=== PATIENT | female | born 1995 ===

== ENCOUNTER 2024-01-22 09:57 | Outpatient (AMB) | payer OTHER, SELFPAY ==
--- NOTE | 2024-01-22 10:44 | A.OFFPC_ITS ---
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 Intake Note: pt is here to est care Allergies nut - unspecified [nut] Allergy (Unknown, Unverified 01/22/24 11:45) HIVES peanut [PEANUT] Allergy (Unknown, Unverified 01/22/24 11:45) HIVES soy [SOY] Allergy (Unknown, Unverified 01/22/24 11:45) HIVES nuts Allergy (Unknown, Uncoded 01/22/24 11:45) Anaphylaxis peanuts Allergy (Unknown, Uncoded 01/22/24 11:45) Anaphylaxis Medication List - Last Reconciled 01/22/24 by PETER Hutton prednisone 20 mg PO DAILY Tobacco use date assessed: 01/22/24 Dental Screening Dental Screen Date: 01/22/24 Did you have a dental visit in the last 12 months?: Yes Did you have a dental problem in the last 6 months where you did not have access to dental care?: No Was dental information given to patient?: Patient has dentist HPI HPI Comments History of Present Illness Details Patient is a 28-year-old female who I am meeting for the 1st time. Patient has been medical history significant for asthma. Patient states she was seen recently at a local urgent care due to increased wheezing and was given prednisone, patient states she still has 2 days left for course of treatment. Will give patient Symbicort inhaler. Will also give patient albuterol solution for nebulizer. Patient has establish care with OBGYN. Will send us notes. 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 1. Little interest or pleasure in doing things: several days 2. Feeling down, depressed, or hopeless: several days 3. Trouble falling or staying asleep, or sleeping too much: several days 4. Feeling tired or having little energy: several days 5. Poor appetite or overeating: several days 6. Feeling bad about yourself - or that you are a failure or have let yourself or your family down: not at all 7. Trouble concentrating on things, such as reading the newspaper or watching television: not at all 8. Moving or speaking so slowly that other people could have noticed. Or the opposite - being so fidgety or restless that you have been moving around a lot more than usual: not at all 9. Thoughts that you would be better off or of hurting yourself in some way: not at all Total score: 5 Depression Screening Interpretation: Negative Depression Screening Done: Yes 60428 - PHQ-9 Billing: Yes Source: Developed by Drs. Gonzalez Palacios, Lakeisha Lopez, Leonid Will and colleagues, with an educational karlee from [employer]. Thrive Questionnaire Date Thrive assessed: 01/22/24 I am a: Patient What is your living situation today?: I have a steady place to live Within the past 12 months, did the food you bought not last and you didn't have the money to get more?: Never true Within the past 12 months, did you worry whether your food would run out before you got money to buy more?: Never true Do you have trouble paying for medicines?: No Do you have trouble getting transportation to medical appointments?: No Do you have trouble paying your heating and electricity bill?: No Do you have trouble taking care of your child, family member or friend?: No Do you have trouble with day-to-day activities such as bathing, preparing meals, shopping, managing finances, etc.?: No Are you currently unemployed and looking for a job?: No Are you interested in more education?: No THRIVE Score: 0 AUDIT C Alcohol Use Questionnaire (AUDIT-C) 1. How often do you have a drink containing alcohol?: Never Total Score: 0 ИРИНА-7 AMB Questionnaire ИРИНА-7 Date ИРИНА - 7 assessed: 01/22/24 Feeling nervous, anxious, or on edge: 0 = Not at all Not being able to stop or control worryin = Not at all Worrying too much about different things: 1 = Several days Trouble relaxin = Not at all Being so restless that it is hard to sit still: 0 = Not at all Becoming easily annoyed or irritable: 0 = Not at all Feeling afraid as if something awful might happen: 0 = Not at all Total ИРИНА-7 score (0-4 normal; 5-9 mild; 10-14 moderate; 15-21 severe): 1 Source: Developed by Drs. Gonzalez Palacios, Lakeisha Lopez, Leonid Will and colleagues, with an educational karlee from [employer]. ИРИНА-7 Assessment Billing ИРИНА-7 Assessment Tool: ИРИНА-7 Assessment 38734 Review of Systems Const All systems reviewed & are unremarkable except as noted in HPI and below Physical exam (Primary Care) Vital Signs: Last Vital Signs Pulse 87 01/22/24 10:55 BP 110/78 01/22/24 10:55 Pulse Ox 98 01/22/24 10:55 Oxygen Delivery Method Room Air 01/22/24 10:55 Care Plan Goal for BP management: Vital signs reviewed stable. BMI result Body Mass Index 24.9 Tobacco/Smoking Status: Tobacco use Status Tobacco use date assessed 01/22/24 01/22/24 11:06 Patient Tobacco Use Status Never used Tobacco 01/22/24 11:06 e-Cigarette/Vaping Use Never Used 01/22/24 11:06 PHQ-9: PHQ-9 Score PHQ-9: Total score 5 01/22/24 11:57 Depression Screening Interpretation: Negative Thrive Assessment: Date of Thrive Assessment Date Thrive assessed 01/22/24 01/22/24 10:57 Const Other: Appearance: Alert.? Oriented X3.? No acute distress.? Head: Normocephalic, atraumatic, no step-offs or deformities Eyes: Pupils equal, round and reactive to light.? ENT: Pharynx normal.?TM intact and pearly delacruz. Neck: Normal inspection.? Neck supple.? CVS: Normal heart rate and rhythm.? Pulses normal.? Respiratory: No respiratory distress.? Breath sounds normal.? Abdomen: Soft and nontender.? Neuro: Oriented X 3.? No motor deficit.? No sensory deficit. CN 2-12 intact Assessment and Plan Assessment & Plan (1) Asthma: Comment: Will give patient Symbicort inhaler in addition to patient's albuterol inhaler. Patient needs refill for albuterol nebulizer solution. Patient will also get referral to Allergy and immunology. Code(s): J45.909 - Unspecified asthma, uncomplicated Qualifiers: Asthma severity: unspecified severity Asthma persistence: unspecified Asthma complication type: unspecified Qualified Code(s): J45.909 - Unspecified asthma, uncomplicated Plan: Take your medications as prescribed. If you were prescribed antibiotics today, it is important that you take your medication to their entirety, do not skip any doses, do not finish them early. Follow-up with your primary care provider this week. Return to the emergency department with new or worsening symptoms. Such as fevers, chills, chest pain, shortness of breath, nausea, vomiting, dizziness, headache, vision changes, lethargy In case of emergency call 911 Plan Will follow-up for PE in 3 months Orders: Orders Lipid Panel Today Z13.220 - Encounter for screening for lipoid disorders UA CC w/rflx Micro + Cult Today Z13.89 - Encounter for screening for other disorder Vitamin B6 Today Z13.21 - Encounter for screening for nutritional disorder Vitamin B12 Today Z13.21 - Encounter for screening for nutritional disorder Comprehensive Met. Panel Today Z91.89 - Other specified personal risk factors, not elsewhere classified Complete Blood Count Auto Diff Today Z13.0 - Encounter for screening for diseases of the blood and blood-forming organs and certain disorders involving the immune mechanism TSH reflex Free T4 Today Z13.29 - Encounter for screening for other suspected endocrine disorder Vitamin D 25-OH (D2 and D3) Today Z13.21 - Encounter for screening for nutritional disorder Referrals Allergy & Immunology Referral J45.909 - Unspecified asthma, uncomplicated Medications: New budesonide-formoterol 160-4.5 mcg/actuation (Symbicort) 2 puffs inhalation BID 10.2 grams 0RF albuterol sulfate 2.5 mg (3 mL) inhalation QID PRN 90 mL 0RF shortness of breath or wheezing Coding Level of Care Code Est Pt Level 3 (55605) Diagnoses Asthma, unspecified asthma severity, unspecified whether complicated, unspecified whether persistent J45.909 Asthma severity: unspecified severity Asthma persistence: unspecified Asthma complication type: unspecified Additional Codes ИРИНА-7 Assessment Billing - ИРИНА-7 Assessment Tool: ИРИНА-7 Assessment 18959 ([id number]) Time Spent (min) 28
[2024-01-22 10:55] VITALS: BP 110/78; PULSE 87; O2SAT 98; BMI 24.9
== END 2024-01-22 12:10 | disposition home or self-care (01) ==
PROVIDERS: Visit Provider Nurse Practitioner Primary Care
DX: J45.909 Unspecified asthma, uncomplicated (principal)
CPT/HCPCS: 99213

== ENCOUNTER 2024-03-20 13:49 | Outpatient (AMB) | payer OTHER, SELFPAY ==
[2024-03-20 13:50] VITALS: BP 112/70; PULSE 72; O2SAT 98; BMI 25.1
--- NOTE | 2024-03-20 13:50 | A.OFFPC_ITS ---
Vital Signs 03/20/24 13:50 Height 5 ft 7 in Weight 160 lb BMI 25.1 BP 112/70 Blood Pressure Location Rt brachial Position Sitting Pulse 72 Pulse Source Pulse Oximeter Pulse Oximetry (%) 98 Oxygen Delivery Method Room Air Intake Visit Reasons: Annual PE Intake Note: pt here for annual PE. PAP overdue Allergies nut - unspecified [nut] Allergy (Unknown, Verified 03/20/24 14:08) HIVES peanut [PEANUT] Allergy (Unknown, Verified 03/20/24 14:08) HIVES soy [SOY] Allergy (Unknown, Verified 03/20/24 14:08) HIVES nuts Allergy (Unknown, Uncoded 03/20/24 14:08) Anaphylaxis peanuts Allergy (Unknown, Uncoded 03/20/24 14:08) Anaphylaxis Medication List - Last Reconciled 03/20/24 by PETER Hutton albuterol sulfate 2.5 mg (3 mL) inhalation QID PRN budesonide-formoterol 160-4.5 mcg/actuation 2 puffs inhalation BID prednisone 20 mg PO DAILY Tobacco use date assessed: 03/20/24 Dental Screening Dental Screen Date: 03/20/24 Did you have a dental visit in the last 12 months?: Yes Did you have a dental problem in the last 6 months where you did not have access to dental care?: No Was dental information given to patient?: Patient has dentist HPI HPI Comments History of Present Illness Details Patient is a 28-year-old female in today for a physical exam. Patient is up-to-date with Tdap next booster due in 2026 Last Pap smear completed 10/2021. Patient would like new OBGYN will refer to [facility] [place]. Patient has a past medical history significant for: Anemia-will draw CBC today. Not currently taking iron supplement Asthma-controlled with Albuterol in Symbicort inhaler. Patient reports she has dull left inguinal pain on some mornings. Does not feel like a burning or stabbing pain. Has had this feeling intermittently for the past two years. Denies fever or chills. No bowel movement or urination issues. 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 1. Little interest or pleasure in doing things: not at all 2. Feeling down, depressed, or hopeless: not at all 3. Trouble falling or staying asleep, or sleeping too much: more than half the days 4. Feeling tired or having little energy: several days 5. Poor appetite or overeating: several days 6. Feeling bad about yourself - or that you are a failure or have let yourself or your family down: not at all 7. Trouble concentrating on things, such as reading the newspaper or watching television: not at all 8. Moving or speaking so slowly that other people could have noticed. Or the opposite - being so fidgety or restless that you have been moving around a lot more than usual: not at all 9. Thoughts that you would be better off or of hurting yourself in some way: not at all Total score: 4 Depression Screening Interpretation: Negative Depression Screening Done: Yes 93017 - PHQ-9 Billing: Yes Source: Developed by Drs. Gonzalez Palacios, Lakeisha Lopez, Leonid Will and colleagues, with an educational karlee from [employer]. Thrive Questionnaire Date Thrive assessed: 03/20/24 I am a: Patient What is your living situation today?: I have a steady place to live Within the past 12 months, did the food you bought not last and you didn't have the money to get more?: Never true Within the past 12 months, did you worry whether your food would run out before you got money to buy more?: Never true Do you have trouble paying for medicines?: No Do you have trouble getting transportation to medical appointments?: No Do you have trouble paying your heating and electricity bill?: No Do you have trouble taking care of your child, family member or friend?: No Do you have trouble with day-to-day activities such as bathing, preparing meals, shopping, managing finances, etc.?: No Are you currently unemployed and looking for a job?: No Are you interested in more education?: No Please select the resources that you would like help with: None Currently or been in a relationship where the following occur: no concerns reported THRIVE Score: 0 AUDIT C Alcohol Use Questionnaire (AUDIT-C) 1. How often do you have a drink containing alcohol?: Never Total Score: 0 ИРИНА-7 AMB Questionnaire ИРИНА-7 Date ИРИНА - 7 assessed: 03/20/24 Feeling nervous, anxious, or on edge: 0 = Not at all Not being able to stop or control worryin = Not at all Worrying too much about different things: 0 = Not at all Trouble relaxin = Not at all Being so restless that it is hard to sit still: 0 = Not at all Becoming easily annoyed or irritable: 0 = Not at all Feeling afraid as if something awful might happen: 0 = Not at all Total ИРИНА-7 score (0-4 normal; 5-9 mild; 10-14 moderate; 15-21 severe): 0 Source: Developed by Drs. Gonzalez Palacios, Lakeisha Lopez, Leonid Will and colleagues, with an educational karlee from [employer]. ИРИНА-7 Assessment Billing ИРИНА-7 Assessment Tool: ИРИНА-7 Assessment 51389 ACT Questionnaire In the past 4 weeks, how much of the time did your asthma keep you from getting as much done at work, school or at home?: A little of the time During the past 4 weeks, how often have you had shortness of breath?: Not at all During the past 4 weeks, how often did your asthma symptoms wake you up at night or earlier than usual in the morning?: Not at all During the past 4 weeks, how often have you had to use your rescue inhaler or nebulizer medication?: Once a week or less How would you rate your asthma control during the past 4 weeks?: Completely controlled ACT Interpretation: Negative Score: 23 Review of Systems Const All systems reviewed & are unremarkable except as noted in HPI and below Denies chills, Denies fever(s) and Denies headache(s) ENT Denies vertigo, Denies dizziness, Denies headache(s) and Denies sore throat Card Denies chest pain and Denies dyspnea Resp Denies cough, Denies dyspnea and Denies wheezing GI Denies hematochezia, Denies constipation, Denies diarrhea, Denies nausea and Denies vomiting Neuro Denies vertigo, Denies dizziness and Denies headache(s) Aller/Immun Denies wheezing Physical exam (Primary Care) Vital Signs: Last Vital Signs Pulse 72 03/20/24 13:50 BP 112/70 03/20/24 13:50 Pulse Ox 98 03/20/24 13:50 Oxygen Delivery Method Room Air 03/20/24 13:50 Care Plan Goal for BP management: BP is controlled. BMI result Body Mass Index 25.1 Tobacco/Smoking Status: Tobacco use Status Tobacco use date assessed 03/20/24 03/20/24 14:02 Patient Tobacco Use Status Never used Tobacco 03/20/24 13:51 e-Cigarette/Vaping Use Never Used 03/20/24 13:51 PHQ-9: PHQ-9 Score PHQ-9: Total score 4 03/20/24 14:02 Depression Screening Interpretation: Negative Thrive Assessment: Date of Thrive Assessment Date Thrive assessed 03/20/24 03/20/24 14:02 Currently or been in a relationship where the following occur: no concerns reported Const Other: Appearance: Alert.? Oriented X3.? No acute distress.? Head: Normocephalic, Eyes: Pupils equal, round and reactive to light.?Sclera white. ENT: Pharynx normal.?Septum midline. TM intact and pearly delacruz. Neck: Normal inspection.? Neck supple.?Full ROM. CVS: Normal heart rate and rhythm.? Pulses normal.?S1 and S2. Respiratory: No respiratory distress.? Breath sounds normal.? Abdomen: Soft and nontender.? Skin: Skin warm and dry.? Normal skin color.? Normal skin turgor.? Extremities: No lower extremity edema.? No calf ttp. 5/5 strength to bilateral upper and lower extremities Back: No midline tenderness, no C-spine tenderness, full range of motion, no CVA tenderness bilaterally Neuro: Oriented X 3.? No motor deficit.? No sensory deficit. CN 2-12 intact Assessment and Plan Assessment & Plan (1) Encounter for physical examination: Comment: Will draw fasting labs. Patient up-to-date with Tdap. Will refer patient to OBGYN for pap smear. Code(s): Z00.00 - Encounter for general adult medical examination without abnormal findings (2) Left inguinal pain: Comment: Will order pelvic ultrasound. Will also order labs. Code(s): R10.32 - Left lower quadrant pain (3) Iron deficiency anemia: Comment: History of -will order ferritin, CBC Code(s): D50.9 - Iron deficiency anemia, unspecified Qualifiers: Iron deficiency anemia type: unspecified iron deficiency Qualified Code(s): D50.9 - Iron deficiency anemia, unspecified (4) Asthma: Comment: Controlled with albuterol and Symbicort. Code(s): J45.909 - Unspecified asthma, uncomplicated Qualifiers: Asthma severity: unspecified severity Asthma persistence: unspecified Asthma complication type: unspecified Qualified Code(s): J45.909 - Unspecified asthma, uncomplicated Plan: draw labs Plan Will follo up with labs. Orders: Orders Ferritin Today Z13.0 - Encounter for screening for diseases of the blood and blood-forming organs and certain disorders involving the immune mechanism US pelvic limited Today R10.32 - Left lower quadrant pain Referrals FINANCIAL SOLUTIONS ADVISOR Referral Z12.4 - Encounter for screening for malignant neoplasm of cervix Coding Level of Care Code New Pt Prev Care 18-39yr([id number] Diagnoses Encounter for physical examination Z00.00 Left inguinal pain R10.32 Iron deficiency anemia, unspecified iron deficiency anemia type D50.9 Iron deficiency anemia type: unspecified iron deficiency Asthma, unspecified asthma severity, unspecified whether complicated, unspecified whether persistent J45.909 Asthma severity: unspecified severity Asthma persistence: unspecified Asthma complication type: unspecified Additional Codes ИРИНА-7 Assessment Billing - ИРИНА-7 Assessment Tool: ИРИНА-7 Assessment [id number] ([id number]) Time Spent (min) 26
== END 2024-03-20 15:53 | disposition home or self-care (01) ==
PROVIDERS: PCP Nurse Practitioner Primary Care; Visit Provider Nurse Practitioner Primary Care
DX: Z00.00 Encounter for general adult medical examination without abnormal findings (principal); R10.32 Left lower quadrant pain; D50.9 Iron deficiency anemia, unspecified; J45.909 Unspecified asthma, uncomplicated
CPT/HCPCS: 99395

== ENCOUNTER 2024-03-25 12:40 | Outpatient (REF) | payer OTHER, SELFPAY ==
--- NOTE | ~2024-03-25 | US_ITS ---
EXAMINATION: US PELVIS, LIMITED/FOLLOW UP CLINICAL INFORMATION: Left lower quadrant pain COMPARISON: None available. TECHNIQUE: Grayscale and Doppler evaluation of patient indicated site of pain in the left lower quadrant FINDINGS: No hernia, lymph node, mass, or fluid collection is seen in the area indicated by the patient. Incidentally seen is a left ovary measuring 4.9 x 3.9 x 4.8 cm containing an intraovarian simple avascular unilocular cyst measuring 3.8 x 3.4 x 4.6 cm. US/US pelvic limited IMPRESSION: * No hernia, lymph node, mass, or fluid collection is seen in the area indicated by the patient. Incidentally seen is a left intraovarian simple avascular unilocular cyst measuring 4.6 cm. Findings are overwhelmingly likely to represent a benign functional cyst. No follow-up imaging recommended.
== END 2024-03-25 12:41 | disposition home or self-care (01) ==
LOC: HO.HMGCX 12:40
PROVIDERS: PCP Nurse Practitioner Primary Care; Visit Provider Nurse Practitioner Primary Care
DX: R10.32 Left lower quadrant pain (principal)
CPT/HCPCS: 76857

== ENCOUNTER 2024-05-06 13:44 | Outpatient (AMB) | payer OTHER, SELFPAY ==
[2024-05-06 14:13] VITALS: BP 110/68; BMI 24.1
--- NOTE | 2024-05-06 14:13 | A.OFFVIS_ITS ---
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 Psychological Tests Sales Agent Required: No Psychological Tests Sales Agent Services: Psychological Tests Sales Agent Present Information Interpreted: clinical only Tube Skiver: Tube Skiver Present Allergies nut - unspecified [nut] Allergy (Unknown, Verified 05/06/24 14:14) HIVES peanut [PEANUT] Allergy (Unknown, Verified 05/06/24 14:14) HIVES soy [SOY] Allergy (Unknown, Verified 05/06/24 14:14) HIVES nuts Allergy (Unknown, Uncoded 05/06/24 14:14) Anaphylaxis peanuts Allergy (Unknown, Uncoded 05/06/24 14:14) Anaphylaxis Medication List - Last Reconciled 05/06/24 by Jessica Martinez CNM albuterol sulfate 2.5 mg (3 mL) inhalation QID PRN budesonide-formoterol 160-4.5 mcg/actuation 2 puffs inhalation BID Is last menstrual period known: Yes Last menstrual period: 04/24/24 HPI HPI 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 She is at the moment not sexually active the last time was February and she does use condoms and she is making a decision to currently be abstinent until she meets her potential future . She is not worried about STDs, but is open to testing, but does not think she needs blood work. she recently had a pain in the left inguinal area that was assessed by ultrasound and no hernia was found however there was an incidental finding of a left ovarian cyst that was felt to be within normal limits, and normal for her Cycling. she gets regular normal menses probably about every 30 days by her recounting and sometimes does notice changes that might be consistent cyclic changes in her menstrual cycle. She is not interested in any hormonal method of control. 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 Current occupational exposures/hazards: Yes Female Reproductive History Menstrual Age of Menarche: 12 Duration of menses: 3-5 days Date of last menstrual period: 04/24/24 control method: none Total pregnancies: 0 History of abnormal pap smear: No (previous pap, 2021,neg.per patient) Physical Exam Vital Signs: Last Vital Signs BP 110/68 05/06/24 14:13 BMI result Body Mass Index 24.1 Const General: healthy appearing, comfortable, no acute distress, well developed and alert Nutritional Appearance: average body habitus Orientation/consciousness: patient oriented x3 Limitations: no limitations HEENT Head: Yes normocephalic Neck Neck: Yes normal visual inspection Chest Chest palpation & inspection: normal inspection of the chest Breast/axilla inspection: normal inspection of the breasts and normal inspection of the axillae Breast/axilla palpation: normal palpation of the breasts and normal palpation of the axillae Resp Effort & Inspection: normal respiratory effort GI Inspection: Yes normal to inspection, No Abdominal wall edema and No distended Palpation (GI): Soft to palpation and nontender Other: External exam within normal limits vagina pink and moist cervix nulliparous pink smooth normal with normal appearing whitish clear mucousy discharge consistent with just post ovulation (patient reports clear slippery discharge 2 days ago.) Uterus is small midposition mobile nontender adnexa nontender slight fullness more on left side possibly consistent with resolving simple cyst noted on ul trasound. Good tone with Kegel nontender overall. General: Yes bladder normal to palpation External Female Exam: normal external appearance and normal appearance of the urethra Speculum Exam - Vagina: normal appearance of the vagina, normal palpation and normal vaginal discharge Speculum Exam - Cervix: normal appearance of the cervix, normal palpation and nontender Bimanual exam- vagina & uterus: normal bimanual exam, normal palpation, uterine size normal, bladder normal to palpation, consistency normal, normal palpation, uterine mobility normal, uterine shape normal, No Cervical tenderness present, non-tender and no cervical motion tenderness Bimanual Exam- Adnexa, other: normal adnexae, no masses, normal and No adnexal tenderness Neuro General: patient oriented x3 Results Reviewed Results Reviewed: Patient: Barb Osei MR#: [id number] : 1995 Acct:[id number] Age/Sex: 28 / F ADM Date: 03/25/24 Loc: HO.[facility]X Attending Dr: Damion GREEN Ordering Physician: Damion Bergman Date of Service: 03/25/24 Procedure(s): US pelvic limited Accession Number(s): [id number] cc: Damion Bergman~ EXAMINATION: US PELVIS, LIMITED/FOLLOW UP CLINICAL INFORMATION: Left lower quadrant pain COMPARISON: None available. TECHNIQUE: Grayscale and Doppler evaluation of patient indicated site of pain in the left lower quadrant FINDINGS: No hernia, lymph node, mass, or fluid collection is seen in the area indicated by the patient. Incidentally seen is a left ovary measuring 4.9 x 3.9 x 4.8 cm containing an intraovarian simple avascular unilocular cyst measuring 3.8 x 3.4 x 4.6 cm. US/US pelvic limited IMPRESSION: * No hernia, lymph node, mass, or fluid collection is seen in the area indicated by the patient. Incidentally seen is a left intraovarian simple avascular unilocular cyst measuring 4.6 cm. Findings are overwhelmingly likely to represent a benign functional cyst. No follow-up imaging recommended. Dictated By: Alyssa Blevins MD Signed By: <Electronically signed by Alyssa Blevins MD in OV> 04/16/24 1209 DD/ 1310 TD/TT: Hand Stemmer: Assessment & Plan Assessment & Plan (1) Well woman exam with routine gynecological exam: Code(s): Z01.419 - Encounter for gynecological examination (general) (routine) without abnormal findings Category: Medical (2) Cervical cancer screening: Code(s): Z12.4 - Encounter for screening for malignant neoplasm of cervix Category: Medical (3) Encounter for screening examination for sexually transmitted disease: Code(s): Z11.3 - Encounter for screening for infections with a predominantly sexual mode of transmission Category: Medical (4) control counseling: Code(s): Z30.09 - Encounter for other general counseling and advice on contraception Category: Medical Plan -----Discussed in this visit the following: healthy balanced diet, regular and consistent exercise, getting recommended health screens, doing the best she can for her particular health concerns, kegel exercises, pap smear screening and followup recommendations, mammography screening and SBE, normal changes in cycles in her life stage--- . Reviewed menstrual cycle and cyclic changes, and anatomy, that can tell her where she is in her cycle as an added boost to condom use for protection from an unplanned unintended . Discussed also the changes that occur with formation of cysts can be completely within normal limits. 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 Discussed starting a multivitamin with folic acid if she is anticipating getting in the foreseeable future. Discussed options for future childbearing in this area and she was already aware of options including [facility] and 7 sisters. She eats very well and tries to avoid junk food and soda and juices and keeps in shape she is also aware caution where antibiotics were concerned. Testing done for gonorrhea chlamydia trichomoniasis as well as the BV and Nisa which are often asymptomatic and not to be treated unless symptomatic. She believes she is on the portal. Orders: Orders CT NG by PCR Today Z11.3 - Encounter for screening for infections with a predominantly sexual mode of transmission PAP + HPV E6/E7 rfx 18/45 Today Z01.419 - Encounter for gynecological examination (general) (routine) without abnormal findings Bacterial Vaginosis Panel Today N89.8 - Other specified noninflammatory disorders of vagina Coding Level of Care Code New Pt Prev Care 18-39yr([id number] Diagnoses Well woman exam with routine gynecological exam Z01.419 Cervical cancer screening Z12.4 Encounter for screening examination for sexually transmitted disease Z11.3 control counseling Z30.09
== END 2024-05-06 15:33 | disposition home or self-care (01) ==
LOC: HO.HWSM 13:44
PROVIDERS: PCP Nurse Practitioner Primary Care; Visit Provider Advanced Practice Midwife
DX: Z01.419 Encounter for gynecological examination (general) (routine) without abnormal findings (principal); Z12.4 Encounter for screening for malignant neoplasm of cervix; Z11.3 Encounter for screening for infections with a predominantly sexual mode of transmission; Z30.09 Encounter for other general counseling and advice on contraception
CPT/HCPCS: 99385

== ENCOUNTER 2024-05-06 13:44 | Outpatient (REF) | payer OTHER, SELFPAY ==
[2024-05-07 01:41] LABS: CT PCR NOT DETECTED (Not Detect.); NG PCR NOT DETECTED (Not Detect.)
[2024-05-07 09:42] LABS: Bacterial Vaginosis PCR POSITIVE (Negative); Candida Group PCR NOT DETECTED (Not Detect); Candida glab krusei PCR NOT DETECTED (Not Detect); Trichomonas vaginalis PCR NOT DETECTED (Not Detect)
[2024-05-10 16:09] LABS: HPV mRNA E6/E7 Not Detected (Not Detected)
== END 2024-05-06 13:45 | disposition home or self-care (01) ==
LOC: HO.LAB 13:44
PROVIDERS: PCP Nurse Practitioner Primary Care; Visit Provider Advanced Practice Midwife
DX: Z01.419 Encounter for gynecological examination (general) (routine) without abnormal findings (principal); Z11.51 Encounter for screening for human papillomavirus (HPV); Z11.3 Encounter for screening for infections with a predominantly sexual mode of transmission; N89.8 Other specified noninflammatory disorders of vagina
CPT/HCPCS: 0352U; 36415; 87491; 87591; 87624; 88175; 99385

== ENCOUNTER 2025-03-28 13:31 | Outpatient (AMB) | payer OTHER, SELFPAY ==
[2025-03-28 14:01] VITALS: BP 110/78; PULSE 72; TEMP 36.8; O2SAT 98; BMI 23.5
--- NOTE | 2025-03-28 14:01 | A.OFFPC_ITS ---
Vital Signs 03/28/25 14:01 Height 5 ft 7 in Weight 150 lb BMI 23.5 BP 110/78 Blood Pressure Location Lt brachial Position Sitting Pulse 72 Pulse Source Pulse Oximeter Temp 98.3 F Temp Source Oral Pulse Oximetry (%) 98 Oxygen Delivery Method Room Air Intake Visit Reasons: transfer from [facility] PE/pcp not listed on ins. Allergies nut - unspecified [nut] Allergy (Unknown, Verified 03/28/25 14:07) HIVES peanut [PEANUT] Allergy (Unknown, Verified 03/28/25 14:07) HIVES soy [SOY] Allergy (Unknown, Verified 03/28/25 14:07) HIVES nuts Allergy (Unknown, Uncoded 03/28/25 14:07) Anaphylaxis peanuts Allergy (Unknown, Uncoded 03/28/25 14:07) Anaphylaxis Medication List - Last Reconciled 03/28/25 by Cora Ramos MD budesonide-formoterol 160-4.5 mcg/actuation 2 puffs inhalation BID Tobacco use date assessed: 03/28/25 Dental Screening Dental Screen Date: 03/28/25 Did you have a dental visit in the last 12 months?: Yes Did you have a dental problem in the last 6 months where you did not have access to dental care?: No Was dental information given to patient?: Patient has dentist HPI transfer from [facility] due PE/pcp not listed on ins. HPI Details Pt presents for PE. She has noticed a bump around her umbilical area after eating. 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 1. Little interest or pleasure in doing things: not at all 2. Feeling down, depressed, or hopeless: several days 3. Trouble falling or staying asleep, or sleeping too much: not at all 4. Feeling tired or having little energy: several days 5. Poor appetite or overeating: not at all 6. Feeling bad about yourself - or that you are a failure or have let yourself or your family down: not at all 7. Trouble concentrating on things, such as reading the newspaper or watching te levision: not at all 8. Moving or speaking so slowly that other people could have noticed. Or the opposite - being so fidgety or restless that you have been moving around a lot more than usual: not at all 9. Thoughts that you would be better off or of hurting yourself in some way: not at all Total score: 2 Depression Screening Interpretation: Negative Depression Screening Done: Yes 28792 - PHQ-9 Billing: Yes Source: Developed by Drs. Gonzalez Palacios, Lakeisha Lopez, Leonid Will and colleagues, with an educational karlee from [employer]. Thrive Questionnaire Date Thrive assessed: 03/28/25 I am a: Patient What is your living situation today?: I have a steady place to live Within the past 12 months, did the food you bought not last and you didn't have the money to get more?: Never true Within the past 12 months, did you worry whether your food would run out before you got money to buy more?: Never true Do you have trouble paying for medicines?: No Do you have trouble getting transportation to medical appointments?: No Do you have trouble paying your heating and electricity bill?: No Do you have trouble taking care of your child, family member or friend?: No Do you have trouble with day-to-day activities such as bathing, preparing meals, shopping, managing finances, etc.?: No Are you currently unemployed and looking for a job?: No Are you interested in more education?: No Please select the resources that you would like help with: None Currently or been in a relationship where the following occur: No concerns reported THRIVE Score: 0 AUDIT C Alcohol Use Questionnaire (AUDIT-C) 1. How often do you have a drink containing alcohol?: Never 3. How often do you have six or more drinks on one occasion?: Never Total Score: 0 ИРИНА-7 AMB Questionnaire ИРИНА-7 Date ИРИНА - 7 assessed: 03/28/25 Feeling nervous, anxious, or on edge: 0 = Not at all Not being able to stop or control worryin = Not at all Worrying too much about different things: 0 = Not at all Trouble relaxin = Not at all Being so restless that it is hard to sit still: 0 = Not at all Becoming easily annoyed or irritable: 0 = Not at all Feeling afraid as if something awful might happen: 0 = Not at all Total ИРИНА-7 score (0-4 normal; 5-9 mild; 10-14 moderate; 15-21 severe): 0 Source: Developed by Drs. Gonzalez Palacios, Lakeisha Lopez, Leonid Will and colleagues, with an educational karlee from [employer]. ИРИНА-7 Assessment Billing ИРИНА-7 Assessment Tool: ИРИНА-7 Assessment 16379 Review of Systems Const All systems reviewed & are unremarkable except as noted in HPI and below Eyes Reports no additional complaints ENT Reports no additional complaints Card Reports no additional complaints Resp Reports no additional complaints GI Reports no additional complaints Reports no additional complaints Physical exam (Primary Care) Vital Signs: Last Vital Signs Temp 98.3 F 03/28/25 14:01 Pulse 72 03/28/25 14:01 BP 110/78 03/28/25 14:01 Pulse Ox 98 03/28/25 14:01 Oxygen Delivery Method Room Air 03/28/25 14:01 BMI result Body Mass Index 23.5 Tobacco/Smoking Status: Tobacco use Status Tobacco use date assessed 03/28/25 03/28/25 14:11 Patient Tobacco Use Status Never used Tobacco 03/28/25 14:11 e-Cigarette/Vaping Use Never Used 03/28/25 14:01 PHQ-9: PHQ-9 Score PHQ-9: Total score 2 03/28/25 14:11 Depression Screening Interpretation: Negative Thrive Assessment: Date of Thrive Assessment Date Thrive assessed 03/28/25 03/28/25 14:11 Currently or been in a relationship where the following occur: No concerns reported Const General: no acute distress HENMT Head: Yes normal to inspection Ears: hearing grossly normal bilaterally Mouth: Normal oral and palatal mucosa present Eyes General: appearance normal, both eyes and all related structures Neck Neck: Yes no lymphadenopathy and Yes supple Resp Effort & Inspection: normal respiratory effort Auscultation: clear to auscultation bilaterally Cardio Rhythm: regular rhythm Heart sounds: S1 normal heart sound present and S2 normal heart sound present GI Inspection: Yes normal to inspection Palpation (GI): Soft to palpation Percussion: Yes normal to percussion Auscultation: normal bowel sounds Coding Level of Care Code Est Pt Prev Care 18-39y(54060) Diagnoses Umbilical hernia K42.9 Annual physical exam Z00.00 Additional Codes ИРИНА-7 Assessment Billing - ИРИНА-7 Assessment Tool: ИРИНА-7 Assessment 11217 ([id number]) PHQ-9 - 03224 - PHQ-9 Billing: Yes ([id number]) Assessment & Plan Assessment & Plan (1) Umbilical hernia: Code(s): K42.9 - Umbilical hernia without obstruction or gangrene Category: Medical Plan: Obtain abdominal ultrasound to evaluate for umbilical hernia (2) Annual physical exam: Code(s): Z00.00 - Encounter for general adult medical examination without abnormal findings Category: Medical Plan: Well-balanced diet regular physical activity discussed with the patient , she will return for fasting blood work Orders: Orders Lipid Panel Today D50.9 - Iron deficiency anemia, unspecified, Z00.00 - Encounter for general adult medical examination without abnormal findings UA w Microscopic Today D50.9 - Iron deficiency anemia, unspecified, Z00.00 - Encounter for general adult medical examination without abnormal findings US abdomen limited Today K42.9 - Umbilical hernia without obstruction or gangrene Comprehensive [place]. Panel Fast Today D50.9 - Iron deficiency anemia, unspecified, Z00.00 - Encounter for general adult medical examination without abnormal findings Complete Blood Count Auto Diff Today D50.9 - Iron deficiency anemia, unspecified, Z00.00 - Encounter for general adult medical examination without abnormal findings
== END 2025-03-28 14:56 | disposition home or self-care (01) ==
LOC: HO.HMCC 13:32
PROVIDERS: Visit Provider Internal Medicine
DX: K42.9 Umbilical hernia without obstruction or gangrene (principal); Z00.00 Encounter for general adult medical examination without abnormal findings

== ENCOUNTER → 2025-03-28 13:31 | Outpatient (BNVA) | payer OTHER, SELFPAY | PROVIDERS: Visit Provider Internal Medicine | DX: Z00.00 Encounter for general adult medical examination without abnormal findings (principal); K42.9 Umbilical hernia without obstruction or gangrene; D50.9 Iron deficiency anemia, unspecified | CPT/HCPCS: 96127; 99395 ==

== ENCOUNTER 2025-05-05 15:13 | Outpatient (REF) | payer OTHER, SELFPAY ==
--- NOTE | ~2025-05-05 | US_ITS ---
CLINICAL HISTORY: K42.9 - Umbilical hernia without obstruction or gangrene Ultrasound abdominal wall soft tissues Comparison: None Findings: There is a small periumbilical hernia containing fat. The neck of the hernia measures 5 mm. The hernia sac measures up to approximately 2.5 cm. Adjacent soft tissues are unremarkable. Impression: 1. Small periumbilical hernia containing fat. This document has been electronically signed by: Terri Allen MD on 05/06/2025 16:52:36
== END 2025-05-05 15:14 | disposition home or self-care (01) ==
LOC: HO.HMGCX 15:13
PROVIDERS: PCP Internal Medicine; Visit Provider Internal Medicine
DX: K42.9 Umbilical hernia without obstruction or gangrene (principal)
CPT/HCPCS: 76705

== ENCOUNTER → 2025-05-05 15:17 | Outpatient (BNV) | payer OTHER, SELFPAY | PROVIDERS: PCP Internal Medicine; Visit Provider Radiology Diagnostic Radiology | DX: K42.9 Umbilical hernia without obstruction or gangrene (principal) | CPT/HCPCS: 76705 ==